=== PATIENT | female | born 1960 | race African-American/Black ===

== ENCOUNTER 2017-06-16 23:17 | Inpatient (IN) | payer OTHER ==
[~2017-06-16] VITALS: Ht 172.7 cm; Wt 92.0 kg
[2017-06-16 23:52] VITALS: Ht 172.7 cm; Wt 92.0 kg
[2017-06-17 05:00] LABS: BASOPHIL % 0.1 % (0-2); PLATELET COUNT 288 x10^3mcL (130-400)
[2017-06-17 05:02] LABS: CALCIUM 8.4 mg/dL (8.5-10.1); CHLORIDE SERUM 106 mmol/L (98-107); GFR1 > 60 mL/min; GLUCOSE SERUM 98 mg/dL (74-106); POTASSIUM SERUM 3.5 mmol/L (3.5-5.1); RED CELL DISTRIBUTION WIDTH 17.5 % (11.5-14.5); SODIUM SERUM 142 mmol/L (136-145)
[2017-06-17 05:06] LABS: ALKALINE PHOSPHATASE 78 U/L (46-116); ALT/SGPT 20 U/L (14-59); AST/SGOT 30 U/L (15-37); BILIRUBIN TOTAL 0.3 mg/dL (0.20-1.00); TOTAL PROTEIN, SERUM 7.8 g/dL (6.4-8.2)
[2017-06-17 05:15] LABS: ALBUMIN 3.2 g/dL (3.4-5.0)
[2017-06-17 05:40] LABS: microscopic required? NO
[2017-06-17 06:06] LABS: UA SPECIFIC GRAVITY 1.015 (1.005-1.035); urine erythrocyte NEGATIVE (NEGATIVE)
[2017-06-17 06:11] LABS: AMPHETAMINE QUAL UR NONE DETECTED (NEG <=1000)
[2017-06-17] MEDS ORDERED: NOR5 PO (07:12)
[2017-06-17] MEDS ORDERED: NATURE'S BLEND F1 MG PO (07:12)
[2017-06-17] MEDS ORDERED: METHOTREXATE2.5 M2 PO (07:13)
[2017-06-17] MEDS ORDERED: LOSARTAN POTASS25 M1 PO (07:13)
[2017-06-17] MEDS ORDERED: COZAAR100 MG PO (07:44)
[2017-06-17] MEDS ORDERED: HYDROCHLOROTHIA25 MG PO (07:45)
[2017-06-17 08:09] VITALS: BP 164/107
[2017-06-17 09:39] VITALS: BP 164/107
[2017-06-17 10:18] VITALS: BP 164/107
[2017-06-17 12:08] LABS: T3 TOTAL 1.49 ng/mL
[2017-06-17 14:13] LABS: MAGNESIUM 1.8 mg/dL (1.8-2.4); PHOSPHOROUS 3.1 mg/dL (2.5-4.9)
[2017-06-17 14:24] LABS: FREE T4 1.21 ng/dL (0.76-1.46); FREE THYROXINE INDEX 3.5 ug/dL (1.4-4.5); T4(THYROXINE) 10.8 ug/dL (4.7-13.3)
[2017-06-17 14:30] VITALS: BP 159/105
[2017-06-17 18:06] VITALS: BP 162/109
[2017-06-17 22:10] VITALS: BP 146/98
[2017-06-18 05:30] VITALS: BP 150/90
[2017-06-18 07:35] LABS: CALCIUM 8.9 mg/dL (8.5-10.1); CARBON DIOXIDE 23.6 mmol/L (21-32); CHLORIDE SERUM 105 mmol/L (98-107); CREATININE SERUM 0.9 mg/dL (0.6-1.0); GFR1 > 60 mL/min; GLUCOSE SERUM 121 mg/dL (74-106); MAGNESIUM 1.9 mg/dL (1.8-2.4); PHOSPHOROUS 3.9 mg/dL (2.5-4.9); POTASSIUM SERUM 3.7 mmol/L (3.5-5.1); SODIUM SERUM 139 mmol/L (136-145)
[2017-06-18 07:47] LABS: PLATELET COUNT 269 x10^3mcL (130-400)
[2017-06-18 07:49] LABS: BASOPHIL % 0 % (0-2)
[2017-06-18 08:10] LABS: CHOLESTEROL/HDL RATIO 2.8
[2017-06-18 09:51] VITALS: BP 151/101
[2017-06-18] MEDS ORDERED: LEVAQUIN750 MG PO (11:08)
[2017-06-18] MEDS ORDERED: LAC PO (11:09)
[2017-06-18 12:41] VITALS: BP 146/99
[2017-06-18] MEDS ORDERED: PREDNISONE10 M1 PO (15:28)
[2017-06-18 16:52] VITALS: BP 142/95
[2017-06-18 17:39] VITALS: BP 142/95
[2017-06-19] MEDS ORDERED: LAC PO (08:54)
[2017-06-19] MEDS ORDERED: VENTOLIN H0.09 MG/A1 INH (08:55)
== END 2017-06-18 19:25 | disposition home or self-care (01) | DRG 197 ==
LOC: ED 23:17 → DU 06-17 04:12
PROVIDERS: Emergency Medicine; Family Medicine; Student in an Organized Health Care Education/Training Program
DX: J84.112 Idiopathic pulmonary fibrosis (principal); E44.0 Moderate protein-calorie malnutrition; J84.9 Interstitial pulmonary disease, unspecified; Z23 Encounter for immunization; M06.9 Rheumatoid arthritis, unspecified; I10 Essential (primary) hypertension; Z68.31 Body mass index [BMI] 31.0-31.9, adult; E83.51 Hypocalcemia; E78.5 Hyperlipidemia, unspecified
CPT/HCPCS: 83880; 84439; 87804; 90658; 90732; 94150; J0696; J1100; J2920; J7030; J7620; J8610

== ENCOUNTER → 2017-07-22 | Outpatient (CLI) | payer OTHER ==
[~2017-07-22] MED LIST: COZAAR100 MG PO; HYDROCHLOROTHIA25 MG PO; LAC PO; LEVAQUIN750 MG PO; LOSARTAN POTASS25 M1 PO; METHOTREXATE2.5 M2 PO; NATURE'S BLEND F1 MG PO; NOR5 PO; PREDNISONE10 M1 PO; VENTOLIN H0.09 MG/A1 INH
== END | disposition home or self-care (01) ==
LOC: MA 08:19
PROC: BH02ZZZ Plain Radiography of Bilateral Breasts (ICD-10-PCS; principal; 2017-07-22)
DX: Z12.31 Encounter for screening mammogram for malignant neoplasm of breast (principal)
CPT/HCPCS: 77067

== ENCOUNTER 2017-10-23 08:46 | Emergency (ER) | payer OTHER ==
[~2017-10-23] VITALS: Ht 172.7 cm; Wt 92.1 kg
[2017-10-23 08:50] VITALS: Ht 172.7 cm; Wt 92.1 kg
[2017-10-23 10:00] LABS: PLATELET COUNT 247 x10^3mcL (130-400)
[2017-10-23 10:26] LABS: CREATININE SERUM 1.1 mg/dL (0.6-1.0)
[2017-10-23 10:27] LABS: CARBON DIOXIDE 27.6 mmol/L (21-32); POTASSIUM SERUM 3.2 mmol/L (3.5-5.1)
[2017-10-23 10:30] LABS: RED CELL DISTRIBUTION WIDTH 17.4 % (11.5-14.5)
[2017-10-23 11:11] VITALS: BP 130/90
[2017-10-23 11:36] LABS: BAND NEUTROPHIL 18 % (0-10); BASOPHIL 0 % (0-2); MONOCYTE 8 % (0-7); SEGMENTED NEUTROPHILS 63 % (37-75); rbc morphology (normal/abnorm) ABNORMAL (NORMAL)
[2017-10-23 11:38] LABS: target cell (codocyte) 1+
== END 2017-10-23 11:48 | disposition home or self-care (01) ==
LOC: ED 08:46
PROVIDERS: Specialist
DX: B34.9 Viral infection, unspecified (principal); I10 Essential (primary) hypertension
CPT/HCPCS: J7620